=== PATIENT | female | born 2005 | race Caucasian/White ===

== ENCOUNTER 2024-08-28 19:21 | Outpatient (REF) | payer OTHER, SELFPAY ==
--- NOTE | ~2024-08-28 | MR_ITS ---
EXAMINATION: MR HIP WITHOUT CONTRAST, RIGHT CLINICAL INFORMATION: Right hip pain. COMPARISON: None available. TECHNIQUE: MRI of the right hip was obtained using routine sequences on a high-field strength magnet. FINDINGS: ACETABULAR LABRUM: Heterogeneity and increased T2 signal throughout the anterosuperior labrum, consistent with irregular, nondisplaced tearing. ARTICULAR CARTILAGE/BONE: Intact articular cartilage. Minimal focally increased T2 signal along the medial aspect of the femoral neck (coronal image 13/22). Minimal adjacent edema and periosteal reaction. Findings are consistent with a stress reaction. No fracture line. No femoral head avascular necrosis. Intact articular cartilage. MUSCLES/TENDONS: Mild gluteus medius and gluteus minimus tendinosis. Mild proximal right hamstring tendinosis. No transverse tendon tear or tendon retraction. JOINT FLUID/BURSA: Trace right hip joint effusion. INTRAPELVIC STRUCTURES: Unremarkable. MR/MR hip RT wo con IMPRESSION: 1. Irregular, nondisplaced tearing throughout the anterosuperior labrum. 2. Minimal focal marrow edema along the medial aspect of the femoral neck with minimal adjacent edema and periosteal reaction. Findings are consistent with a stress reaction. No fracture line. 3. Mild gluteus medius, gluteus minimus, and proximal hamstring tendinosis. No transverse tendon tear or tendon retraction. 4. Trace right hip joint effusion. Electronically signed by: Inocencio Bhatia MD 09/04/2024 10:58 AM EDT Workstation: -[id number]
== END 2024-08-28 19:22 | disposition home or self-care (01) ==
LOC: HO.MRI 19:21
PROVIDERS: PCP Family Medicine; Visit Provider Family Medicine
DX: M25.551 Pain in right hip (principal)
CPT/HCPCS: 73721